=== PATIENT | male | born 1955 | race Caucasian/White ===

== ENCOUNTER 2016-07-31 15:07 | Inpatient (IN) ==
[2016-07-31] MEDS ORDERED: 0.9 % Sodium Chloride 1,000 ML IVC ONE (15:15)
--- NOTE | 2016-07-31 15:38 | Emergency Department Note ---
START Narrative - START START: I examined this patient and my medical decision-making was reviewed with the REACH TRUCK OPERATOR/PA/Advanced Practice Nurse/Resident Physician. I agree with the documented findings, disposition and treatment plan as described except to the extent set forth below. ED attending note: Patient seen with emergency medicine resident Dr. Sheriff. Please see a copy of his note for details of the H&P, evaluation, management and disposition of this patient. We independently had [id number] contact with the patient Briefly: 61 year old male from the [facility] via EMS for dark stools, has been taking 9 tablets of a nonsteroidal daily for pain. Was seen at the [place] was orthostatic upon standing symptomatic and anemic. Transferred for GI bleed. Finish up with some screening labs and admit the patient for GI bleeding. We have provided 35 minutes of critical care service this patient. Admission pending. Patient stable now
--- NOTE | 2016-07-31 15:55 | Emergency Department Note ---
Disposition Clinical Impression: Symptomatic anemia, Acute kidney injury GI bleed Qualifiers: GI bleed type/associated pathology: melena Qualified Code(s): K92.1 - Melena Disposition: Admitted As Inpatient Condition: Good GI Bleed HPI - General Chief complaint: ED GI Bleed Stated complaint: Black bowel movements Time Seen by Provider: 07/31/16 15:14 Source: patient, EMS Mode of arrival: EMS Limitations: no limitations Nursing Notes Reviewed: Yes Vital Signs Reviewed: Yes - History of Present Illness HPI Narrative: 61-year-old male history of hypertension, hyperlipidemia who presents to the ER from the [place] due to lower GI bleed. patient reorts for the last 2 weeks he had chest pain intermittently. He states because of that he was taking 8-9 etodolac a day. He states that this did help his chest pain. He reports that he went to the [place] today and because he felt so bad they sent him here. Patient reports he has had some dark stools recently. No history of anemia or GI bleed in the past. No history of endoscopy. He is not on any anticoagulation. He does take aspirin daily. He denies nausea, vomiting, abdominal pain, diarrhea. No other complaints. Pt Subjective Complaint: melena Onset (ago): day(s) Consistency: intermittent Severity: none Improves with: nothing Worsens with: nothing Associated symptoms: Denies: abdominal pain, nausea, vomiting, fever, shortness of breath Treatments Prior to Arrival: none - Related Data Home Medications Medication Instructions Recorded Confirmed Aspirin Enteric Coated [Aspirin EC] 325 mg PO DAILY 07/31/16 07/31/16 Diclofenac Sodium [Voltaren] 2 gm TP BID PRN 07/31/16 07/31/16 Etodolac [Lodine] 400 mg PO BID PRN 07/31/16 07/31/16 Hydrochlorothiazide 25 mg PO DAILY 07/31/16 07/31/16 Lidocaine 4% CRM (LMX) [Lmx 4] 1 appl TP BID PRN 07/31/16 07/31/16 Lisinopril [Zestril] 20 mg PO BID 07/31/16 07/31/16 Metoprolol [Lopressor] 25 mg PO QPM 07/31/16 07/31/16 Metoprolol [Lopressor] 50 mg PO QAM 07/31/16 07/31/16 Allergies Allergy/AdvReac Type Severity Reaction Status Date / Time simvastatin AdvReac Unknown Verified 07/31/16 17:26 All systems ED: reviewed and negative except as stated. Constitutional: Denies: fever Cardiovascular: Reports: chest pain, dyspnea on exertion Respiratory: Denies: cough, dyspnea, wheezes Gastrointestinal: Reports: melena. Denies: abdominal pain, nausea, vomiting, diarrhea Musculoskeletal: Denies: back pain Hematological/Lymphatic: Denies: easy bleeding Past Medical History - Past Medical History Attestation: Yes The following information was validated with the patient. Source: patient Medical history: Reports: hypertension Surgical history: Reports: non-contributory Psychiatric history: Reports: no psych history - Social History Smoking Status: Former smoker Smokeless Tobacco Status: No Alcohol use: Reports: occasionally Drug use: Reports: none Physical Exam - General Limitations: no limitations General appearance: alert, in no apparent distress, other (Pale) - Head Head exam: atraumatic, normocephalic, normal inspection - Eye Eye exam: Present: normal appearance, EOMI - ENT ENT exam: normal exam - Neck Neck exam: Present: normal inspection - Chest Chest inspection: Present: normal inspection, symmetric chest wall rise - Respiratory Respiratory exam: Present: normal lung sounds bilaterally - Cardiovascular Cardiovascular exam: Present: normal rhythm, tachycardia, normal heart sounds - Abdominal Exam Abdominal exam: Present: soft, Non-Tender. Absent: tenderness - Rectal Exam Rectal exam: Present: normal inspection, heme (-) stool - Expanded Upper Extremity Exam Shoulder exam: Present: normal inspection, full ROM Arm exam: Present: normal inspection, full ROM Elbow exam: Present: normal inspection, full ROM Forearm/Wrist exam: Present: normal inspection, full ROM Hand exam: Present: normal inspection, full ROM - Expanded Lower Extremity Exam Hip/Pelvis exam: Present: normal inspection, full ROM Upper leg exam: Present: normal inspection, full ROM Knee exam: Present: normal inspection, full ROM Lower leg exam: Present: normal inspection, full ROM Ankle exam: Present: normal inspection, full ROM Foot/toe exam: Present: normal inspection, full ROM - Neurological Exam Neurological exam: Present: alert - Psychiatric Psychiatric exam: Present: normal affect, normal mood - Skin Skin exam: Present: warm, dry, intact, normal color Course Course Narrative: Patient patient seen and examined. Vital signs reviewed. He is slightly tachycardic here. We will check a stool occult, type and screen and to begin transfusing. Patient will be admitted for further management.\ I reviewed the lab work from the [place] which shows a hemoglobin of 6.2 that was previously 13.4 on 02/29/2016. White count 13.7 platelets 607. Sodium 140, potassium 3.6, chloride 105, bicarbonate 26, BUN 62 from 30. Creatinine 2.34 from 1.43. GFR 30 from 53. - Reevaluation(s) Reevaluation #1: Troponin here is 0. Patient will be transfused a unit of blood. Vital Signs Temperature 98.3 F 07/31/16 15:08 Pulse Rate 108 07/31/16 15:08 Respiratory Rate 20 07/31/16 15:08 Blood Pressure 137/79 07/31/16 15:08 O2 Sat by Pulse Oximetry 100 07/31/16 15:08 Temperature 98.3 F 07/31/16 17:28 Pulse Rate 97 07/31/16 17:28 Respiratory Rate 18 07/31/16 17:28 Blood Pressure 125/73 07/31/16 17:28 O2 Sat by Pulse Oximetry 100 07/31/16 17:13 Oxygen Delivery Oxygen Delivery Nasal Cannula GI Bleed - [facility] Narrative Medical decision making narrative: 61-year-old male presents to the ER due to concern for GI bleed. His hemoglobin is 6.2. Coags are normal. Does have an elevated creatinine and BUNs. Patient given IV fluids and packed RBCs here. Patient will be admitted for further management of symptomatic anemia. - Lab Data Lab results reviewed: Yes I reviewed the patient's lab results. Lab Results 07/31/16 07/31/16 07/31/16 Range/Units 15:32 15:32 15:47 Troponin I 0.00 (0-0.03) ng/mL Stool Occult Blood Negative (Negative) Blood Type O POSITIVE Antibody Screen NEGATIVE Crossmatch See Detail - EKG Data EKG attestation: Yes I reviewed and interpreted this EKG. EKG results narrative: EKG demonstrates sinus tachycardia with a rate of 113. IA interval 160 QRS duration 101 QTc 383. T-wave flattening in lead 3. No ST elevations or depressions. S.B.A.R. - S.B.A.R. Situation: Demographics, MOA Background: Presenting Complaint, Relevant PMH, Meds, & Allergies Assessment: Vital Signs, Course and respsone to treatment, Exam Concerns, Patient/Family Expectation, Pertinant Lab Results, Outstanding Labs Recommendation: Barrier(s) to disposition, Recommendation based on pending studies, treatments, or consults S.B.A.R. Report Given to: Dr. Gio MartinezASteve Repor Time: 17:19 (Requests a second unit of PRBCs to be given)
[2016-07-31] MEDS ORDERED: 0.9 % Sodium Chloride 250 ML ONE ×2 (17:00→20:41)
[2016-07-31] MEDS ORDERED: Pantoprazole 40 MG VIAL IVP ONE (20:18)
[2016-07-31] MEDS ORDERED: Naloxone 0.4 MG/ML INJ IVP PRN (20:47)
[2016-07-31] MEDS ORDERED: *HR* HYDROcodone/Acet 5/325 mg TABLET PO PRN (20:47)
[2016-07-31] MEDS ORDERED: Acetaminophen 325 MG TABLET PO PRN (20:47)
[2016-07-31] MEDS: Pantoprazole 40 MG in 0.9 % Sodium Chloride Mini Bag 100 ML IVC SCH (22:58)
[2016-07-31] MEDS: 0.9 % Sodium Chloride 1,000 ML IVC SCH (23:09)
--- NOTE | 2016-07-31 23:12 | Internal Med History&Physical ---
Date of Encounter: 07/31/16 Time of Encounter: 23:08 Assessment and Plan (1) GI bleed Current visit: Yes Status: Acute Patient with Hgb of 6.2 and reports black stools. He has been taking 3 different NSAIDs for his joint pain. Stop NSAIDs IV protonix drip Transfuse 2 units of blood Check H/H Q 6 hours NPO for likely scope tomorrow Consult to GI ordered. Qualifiers: GI bleed type/associated pathology: melena Qualified Code(s): K92.1 - Melena (2) Symptomatic anemia Current visit: Yes Status: Acute Patient reporting shortness of breath and fatigue. Hgb 6.2 today. Transfuse 2 units of Packed RBCs check H/H every 6 hours (3) Acute kidney injury Current visit: Yes Status: Acute Patient's BUN/Cr 62/2.34, likely due to excessive NSAID use. Avoid NSAIDs IV fluids 0.9NS at 100ml/hr recheck chemistry in the mornign. (4) Hypertension Current visit: Yes Status: Acute Patient with low-normal blood pressure today due to anemia. Will hold home blood pressure medications for now. Qualifiers: Hypertension type: essential hypertension Qualified Code(s): I10 - Essential (primary) hypertension (5) Chest pain Current visit: Yes Status: Acute Patient reports dull ache in the middle of his chest for the last several weeks. He reports it is not-radiating, relieved by aspirin. Troponin negative at 0.0, EKG showed sinus tachycardia without ischemic changes. Low suspicion for ACS, but will rule out. serial troponins continuous cardiac cath tech. Qualifiers: Chest pain type: precordial pain Qualified Code(s): R07.2 - Precordial pain (6) DVT prophylaxis Current visit: Yes Status: Acute Ambulate with assistance anti-embolic stockings pharmacologic prophylaxis is contraindicated in active GI bleed. Internal Medicine - H&P: HPI Chief complaint: acute blood loss anemia Admitted From: Emergency Dept Plans for Post Hospital Care: Home History of present illness: Mr. Berrios is a 61 year old male with hypertension, hyperlipidemia, who presented to the [place] clinic today for a joint injection and was found to have low blood pressure they obtained labs and found that his hemoglobin was 6.2 and he was sent to our emergency department. Patient reports that he has been having dark stools, but did not note anything out of the ordinary. He reports a dull ache in his chest for the last several weeks. He also reports feeling tired and noted shortness of breath yesterday and today. He denies any dizziness, lightheadedness, palpitations. He denies any alfie blood in his stools, and has not noted any other bleeding. For his joint aches he has been taking aspirin, diclofenac, and Etodolac, all NSAIDs. In addition to his anemia with Hgb 6.2, he was also noted to have SERGE with BUN 62 and Cr of 2.34 which is also likely due to excessive NSAID use. Other evaluation included a troponin which was negative at 0.00, EKG which showed sinus tachycardia. On exam, patient is alert and oriented, in no distress. Heart has regular rate and rhythm, lungs are clear bilaterally to auscultation. Past Med Surg Social Fam HX - Past Medical History Medical history: hyperlipidemia, hypertension Psychiatric history: no psych history - Past Surgical History Surgical History: no surgical history - Social History Smoking Status: Former smoker Smokeless Tobacco Status: No Alcohol use: occasionally Drug use: none Internal Medicine - H&P: Meds Aspirin Enteric Coated [Aspirin EC] 325 mg PO DAILY 07/31/16 [History] Diclofenac Sodium [Voltaren] 2 gm TP BID PRN 07/31/16 [History] Etodolac [Lodine] 400 mg PO BID PRN 07/31/16 [History] Hydrochlorothiazide 25 mg PO DAILY 07/31/16 [History] Lidocaine 4% CRM (LMX) [Lmx 4] 1 appl TP BID PRN 07/31/16 [History] Lisinopril [Zestril] 20 mg PO BID 07/31/16 [History] Metoprolol [Lopressor] 25 mg PO QPM 07/31/16 [History] Metoprolol [Lopressor] 50 mg PO QAM 07/31/16 [History] Allergies simvastatin Adverse Reaction (Verified 07/31/16 17:26) Unknown per [facility] PM: A 10-system review of systems was performed and is negative for pertinent findings except as documented above in the HPI. - Constitutional Constitutional: fatigue, no chills, no fever(s), no night sweats - EENT Eyes: no change in vision, no discharge, no pain, no photophobia Ears: no ear discharge, no ear pain, no tinnitus Nose, mouth and throat: no dysphagia, no nasal discharge, no neck pain, no sore throat - Cardiovascular Cardiovascular ROS IM: chest pain, dyspnea on exertion, no diaphoresis, no dyspnea, no lightheadedness, no palpitations, no syncope - Respiratory Respiratory: dyspnea on exertion, no cough, no dyspnea, no wheezing, no excessive phlegm production - Gastrointestinal Gastrointestinal: melena, no abdominal pain, no diarrhea, no hematemesis, no hematochezia, no nausea, no vomiting - Musculoskeletal Musculoskeletal ROS IM: no numbness, no tingling - Integumentary Integumentary IM: no rash, no unusual bruising - Neurological Neurological ROS: no confusion, no convulsions, no focal weakness, no numbness, no tingling, no tremor(s) - Hematologic/Lymphatic Hematologic/Lymphatic: no easy bruising - Constitutional Vitals: Temp Pulse Resp BP Pulse Ox 99.3 F 106 16 157/81 100 07/31/16 21:58 07/31/16 21:58 07/31/16 21:58 07/31/16 21:58 07/31/16 21:58 General appearance: Present: A&O X 3, no acute distress - Head Head exam: Present: atraumatic, normocephalic - Eye Eye exam: Present: PERRL, conjuntiva pink, sclera anicteric Pupils: Present: PERRL - Neck Neck exam general surgery: Present: supple, trachea midline. Absent: lymphadenopathy - Respiratory Respiratory exam: Present: CTAB. Absent: accessory muscle use, rales, rhonchi, wheezes - Cardiovascular Cardiovascular exam: Present: RRR, +S1, +S2. Absent: diastolic murmur, gallop, rubs, systolic murmur - GI/Abdominal GI/Abdominal exam: Present: normal bowel sounds, soft, no peritoneal signs. Absent: distended, tenderness - Extremities Exam Extremities exam: Present: warm, radial pulses palpable and symetrical. Absent : calf tenderness, cyanotic, pedal edema - Neurological Exam Neurological exam: Present: CN II-XII intact, oriented X3, no focal deficits. Absent: facial droop, speech deficit - Skin Skin exam: Present: dry, intact Internal Med - H&P Results - Labs Labs: Labs from [place]: Hgb 6.2 WBC 13.7 Plt 607 Na 140 K 3.6 Cl 105 CO2 26 BUN 62 Cr 2.34 Trop 0.00
[2016-08-01 01:24] LABS: Basophils % 0.2 %; Eosinophils # 0.4 K/mcL (0.0-0.6); Eosinophils % 3.1 %; Hematocrit 23.3 % (37.5-50.1); Hemoglobin 7.5 g/dL (12.9-16.9); Immature Granulocytes % 0.8 % (0-4); Lymphocytes # 2.2 K/mcL (0.6-4.6); Lymphocytes % 18.2 %; Mean Corpuscular HGB Conc 32.2 g/dL (31.6-35.5); Mean Corpuscular Volume 86.9 fL (83.0-100.0); Mean Platelet Volume 9.1 fL (9.4-12.4); Monocytes % 7.9 %; Neutrophils # 8.4 K/mcL (1.6-8.9); Platelet Count 437 K/mcL (140-400); Red Blood Count 2.68 M/mcL (4.19-5.50); Red Cell Distribution Width 14.8 % (11.5-14.5); Segmented Neutrophils % 69.8 %
[2016-08-01 01:46] LABS: Calcium 8.3 mg/dL (8.6-10.8); Potassium 3.4 mEq/L (3.5-4.5)
[2016-08-01] MEDS: Pantoprazole 40 MG in 0.9 % Sodium Chloride Mini Bag 100 ML IVC SCH ×4 (02:31→20:49)
--- NOTE | 2016-08-01 04:07 | Event Note ---
Date of Encounter: 08/01/16 Time of Encounter: 04:04 Patient seen and examined with nurse practitioner patient presents with a two- week history of weakness decreased exercise tolerance and black stools. Patient has been taking nonsteroidal anti-inflammatory drugs on daily paces for the past 2 week. Suspect nonsteroidal anti-inflammatory drug induced ulcer disease. Patient will be placed on Platonic strip. 2 units of blood will be transfused. Follow H&H Q6 hours. I have advised the patient to avoid nonsteroidal anti-inflammatory drugs completely. Patient is also having acute or chronic renal failure due to increase use of nonsteroidal anti-inflammatory drugs and he was also advised to avoid that to avoid renal injury. Patient is NPO gastroenterology consultation for upper endoscopy. He is having chest pain which does not appear anginal. Serial troponin will be checked. EKG without any ischemic changes.
[2016-08-01] MEDS ORDERED: *HR* FentaNYL (PF) 100 MCG/2 ML VIAL ONE (07:21)
[2016-08-01] MEDS ORDERED: *HR* Midazolam HCl 5 MG/5 ML VIAL IVP ONE (07:21)
[2016-08-01] MEDS ORDERED: 0.9 % Sodium Chloride 1,000 ML IVC SCH (07:45)
[2016-08-01] MEDS: *HR* Midazolam HCl 5 MG/5 ML VIAL IVP PRN ×3 (07:45→07:55)
[2016-08-01] MEDS: *HR* FentaNYL (PF) 100 MCG/2 ML VIAL IVP PRN ×3 (07:45→07:55)
[2016-08-01] MEDS ORDERED: *HR* EPINEPHrine 1 MG/10 ML SYRINGE INTRATRACH PRN (08:03)
--- NOTE | 2016-08-01 08:19 | Internal Med Progress Note ---
<Tim Quintero - Last Filed: 08/01/16 12:21> Date of Encounter: 08/01/16 Time of Encounter: 08:19 - Assessment and plan (1) GI bleed Current Visit: Yes Status: Acute Assessment and plan: 08/01/16 Patient had endoscopy this morning which reportedly showed a large bleeding ulcer Continue plan as below Appreciate GI recommendations, will follow 07/31/16 Patient with Hgb of 6.2 and reports black stools. He has been taking 3 different NSAIDs for his joint pain. Stop NSAIDs IV protonix drip Transfuse 2 units of blood Check H/H Q 6 hours NPO for likely scope tomorrow Consult to GI ordered. (2) Anemia due to acute blood loss Current Visit: Yes Status: Acute Assessment and plan: 08/01/16 Hemoglobin increased to 9.3 this morning Continue to monitor H&H and transfuse as necessary 07/31/16 Patient reporting shortness of breath and fatigue. Hgb 6.2 today. Transfuse 2 units of Packed RBCs check H/H every 6 hours (3) Acute kidney injury Current Visit: Yes Status: Acute Assessment and plan: 08/01/16 serum creatinine trending down 07/31/16 Patient's BUN/Cr 62/2.34, likely due to excessive NSAID use. Avoid NSAIDs IV fluids 0.9NS at 100ml/hr recheck chemistry in the mornign. (4) Hypertension Current Visit: Yes Status: Acute Assessment and plan: 08/01/16 Blood pressure trending back upward but most recently 120s / 70s Significant increase in hemoglobin Continue to monitor and resume home medications as necessary 07/31/16 Patient with low-normal blood pressure today due to anemia. Will hold home blood pressure medications for now. (5) Chest pain Current Visit: Yes Status: Acute (6) DVT prophylaxis Current Visit: Yes Status: Acute - Subjective Interval history: Patient away for EGD this morning. He was seen and examined post procedure in ICU. Patient was intubated / sedated. - Constitutional Vitals: Temp Pulse Resp BP Pulse Ox 98.8 F 99 16 109/71 99 08/01/16 07:28 08/01/16 08:05 08/01/16 08:05 08/01/16 08:05 08/01/16 08:05 General appearance: Present: no acute distress - Head Head exam: Present: atraumatic, normocephalic - Neck Neck exam general surgery: Present: supple, trachea midline. Absent: lymphadenopathy - Respiratory Respiratory exam: Present: decreased breath sounds, CTAB. Absent: accessory muscle use, rales, rhonchi, wheezes - Cardiovascular Cardiovascular exam: Present: RRR, +S1, +S2. Absent: diastolic murmur, gallop, rubs, systolic murmur - GI/Abdominal GI/Abdominal exam: Present: normal bowel sounds, soft, no peritoneal signs. Absent: distended - Extremities Exam Extremities exam: Present: warm, radial pulses palpable and symetrical. Absent : pedal edema - Neurological Exam Neurological exam: Absent: facial droop - Skin Skin exam: Present: dry, intact Internal Medicine: Result - Labs CBC & Chem 7: 08/01/16 10:16 08/01/16 10:16 Labs: Short CBC 08/01/16 Range/Units 01:11 WBC 12.1 H (4.3-11.1) K/mcL Hgb 7.5 L (12.9-16.9) g/dL Hct 23.3 L (37.5-50.1) % Plt Count 437 H (140-400) K/mcL Neutrophils # 8.4 (1.6-8.9) K/mcL BMP 08/01/16 01:11 Sodium 140 Potassium 3.4 L Chloride 108 Carbon Dioxide 22 BUN 51 H Creatinine 1.75 H Glucose 115 H Calcium 8.3 L Cardiac Enzymes 08/01/16 08/01/16 Range/Units 01:11 06:35 Troponin I 0.01 0.01 (0-0.03) ng/mL Consult Discharge Plan - Plan [facility] Provider[facility] - <Tony Goncalves P - Last Filed: 08/01/16 18:32> - Constitutional Vitals: Temp Pulse Resp BP Pulse Ox 98.6 F 85 16 111/70 100 08/01/16 17:02 08/01/16 18:00 08/01/16 18:00 08/01/16 18:00 08/01/16 18:00 Internal Medicine: Result - Labs CBC & Chem 7: 08/01/16 10:16 08/01/16 10:16 Labs: Short CBC 08/01/16 08/01/16 Range/Units 01:11 10:16 WBC 12.1 H 17.3 H (4.3-11.1) K/mcL Hgb 7.5 L 9.3 L D (12.9-16.9) g/dL Hct 23.3 L 28.7 L (37.5-50.1) % Plt Count 437 H 379 (140-400) K/mcL Neutrophils # 8.4 14.6 H (1.6-8.9) K/mcL BMP 08/01/16 08/01/16 01:11 10:16 Sodium 140 140 Potassium 3.4 L 4.0 Chloride 108 111 H Carbon Dioxide 22 20 BUN 51 H 42 H Creatinine 1.75 H 1.72 H Glucose 115 H 173 H Calcium 8.3 L 7.6 L Cardiac Enzymes 08/01/16 08/01/16 Range/Units 01:11 06:35 Troponin I 0.01 0.01 (0-0.03) ng/mL Liver Function 08/01/16 Range/Units 10:16 Total Bilirubin 0.7 (0.2-1.2) mg/dL AST 15 (5-34) Units/L ALT 13 (0-55) Units/L Alkaline Phosphatase 44 (38-126) Units/L Albumin 2.2 L (3.5-5.0) g/dL Urine 08/01/16 Range/Units 16:45 Urine Color Yellow (Yellow) Urine Clarity Clear (Clear) Urine pH 6.0 (5.0-8.0) pH Units Ur Specific [place] 1.021 (1.010-1.025) Urine Protein Negative (Neg-Trace) mg/dL Urine Glucose (UA) Normal (Normal) mg/dL - ABG Interpretation ABG results: ABG ABG pH 7.28 pH Units (7.32-7.45) L 08/01/16 11:40 ABG pCO2 45 mmHg (35-45) 08/01/16 11:40 ABG pO2 98 mmHg (85-104) 08/01/16 11:40 ABG O2 Saturation 97 % (95-98) 08/01/16 11:40 PT/INR, D-dimer PT 13.1 Seconds (9.4-12.1) H 08/01/16 10:16 - Impressions Impressions Chest X-Ray 08/01/16 09:44 IMPRESSION: 1. Endotracheal tube tip approximately 3 cm above the ted. 2. Patchy opacities in the left lung, which may represent pneumonia in the appropriate clinical setting. 3. Widening of the mediastinum superiorly, which is nonspecific and could be related to shallow breath and portable technique. Further evaluation with CT may be warranted. D/ / Cielo Godoy MD / Cielo Godoy MD Interpreting Provider: Cielo Godoy MD - Attending Attestation I examined this patient and my medical decision-making was reviewed with the STONE DRESSER/PA/Advanced Practice Nurse/Resident Physician. I agree with the documented findings, disposition and treatment plan as described except to the extent set forth below. noted events pulmonary to take over management
[2016-08-01] MEDS ORDERED: hydroCHLOROthiazide 25 MG TABLET PO SCH (09:00)
[2016-08-01] MEDS ORDERED: *HR* Succinylcholine 200 MG/10 ML VIAL IVP ONE (09:07)
[2016-08-01] MEDS ORDERED: EPHEDrine 50 MG/ML VIAL IVP ONE (09:07)
[2016-08-01] MEDS ORDERED: *HR* Propofol 200 MG/20 ML VIAL IVP ONE (09:07)
[2016-08-01] MEDS ORDERED: *HR* Rocuronium Bromide 50 MG/5 ML VIAL IVC ONE (09:07)
[2016-08-01] MEDS: 0.9 % Sodium Chloride 1,000 ML IVC SCH ×2 (09:31→23:09)
[2016-08-01 10:38] LABS: Basophils # 0.1 K/mcL (0.0-0.2); Basophils % 0.3 %; Eosinophils # 0.3 K/mcL (0.0-0.6); Eosinophils % 1.4 %; Hematocrit 28.7 % (37.5-50.1); Hemoglobin 9.3 g/dL (12.9-16.9); Lymphocytes # 1.3 K/mcL (0.6-4.6); Lymphocytes % 7.5 %; Mean Corpuscular HGB Conc 32.4 g/dL (31.6-35.5); Mean Corpuscular Hemoglobin 28.4 pg (28.0-33.3); Mean Corpuscular Volume 87.8 fL (83.0-100.0); Mean Platelet Volume 9.1 fL (9.4-12.4); Monocytes # 0.7 K/mcL (0.0-1.3); Monocytes % 4.1 %; Neutrophils # 14.6 K/mcL (1.6-8.9); Platelet Count 379 K/mcL (140-400); Red Blood Count 3.27 M/mcL (4.19-5.50); Segmented Neutrophils % 84.7 %
--- NOTE | 2016-08-01 10:46 | Gastroenterology Consult Note ---
<Herson Camarena - Last Filed: 08/01/16 10:44> Date of Encounter: 08/01/16 Time of Encounter: 09:40 - Assessment and plan (1) GI bleed Current Visit: Yes Status: Acute Assessment and plan: Pt with melena on presentation. EGD completed this morning per Dr. Leos. Large ulcer noted which started bleeding. Concern for aspiration, pt was intubated for airway protection, and transferred to ICU. Continue Protonix gtt. Stop NSAIDs. Qualifiers: GI bleed type/associated pathology: melena Qualified Code(s): K92.1 - Melena (2) Symptomatic anemia Current Visit: Yes Status: Acute Assessment and plan: Continue to monitor CBC and transfuse PRBC as needed. (3) Acute kidney injury Current Visit: Yes Status: Acute - Time Spent With Patient Total time spent is greater than 50% in coordination of care (as documented) at patient's floor/unit and/or counseling patient: GI History of Present Illness - Data of Consult Patient: new to practice Consult date: 08/01/16 Requesting Physician: Tony Goncalves MD - Consult Narrative Reason for consult: Melena History of present illness: Mr. Berrios is a 61 year old male with PMHx of HLD and HTN who presented to the [place] and was found to be anemic with Hgb of 6.2. He was transferred here for further evaluation. He reports melena, fatigue, and SOB. He denies hematochezia or hematemesis. No dizziness, lightheadedness, or palpitations. He uses ASA, diclofenac, and etodolac for joint aches. Pt was sedated with Propofol during my exam, information obtained from medical record. Procedures: None NSAIDs: ASA, diclofenac, and etodolac Anticoagulation: None Past Med Surg Social Fam HX - Past Medical History Medical history: hyperlipidemia, hypertension Psychiatric history: no psych history - Past Surgical History Surgical History: no surgical history - Social History Smoking Status: Former smoker Smokeless Tobacco Status: No Alcohol use: occasionally Drug use: none ROS unobtainable: due to endotracheal tube - Constitutional Vitals: Temp Pulse Resp BP Pulse Ox 98.8 F 112 16 153/83 96 08/01/16 07:28 08/01/16 10:08 08/01/16 10:08 08/01/16 10:08 08/01/16 10:08 Exam: Intubated and sedated - Head Head exam: Present: atraumatic, normocephalic - Eye Eye exam: Present: normal appearance, sclera anicteric - ENT ENT exam: Present: mucous membranes dry Additional comments: ET tube in place, blood noted in ET tube. - Neck Neck exam general surgery: Present: normal inspection, trachea midline - Respiratory Additional comments: mechanical breath sounds. - Cardiovascular Cardiovascular exam: Present: RRR, +S1, +S2 - GI/Abdominal GI/Abdominal exam: Present: distended, soft, no peritoneal signs. Absent: firm , guarding - Rectal Rectal exam: Present: deferred - Extremities Exam Extremities exam: Present: warm - Neurological Exam Additional comments: Sedated - Psychiatric Psychiatric exam: Present: normal affect, normal mood - Skin Skin exam: Present: dry, intact, normal color, warm Results - Labs CBC & Chem 7: 08/01/16 10:16 08/01/16 01:11 Labs: Last Result Calcium 8.3 mg/dL (8.6-10.8) L 08/01/16 01:11 Troponin I 0.01 ng/mL (0-0.03) 08/01/16 06:35 Stool Occult Blood Negative (Negative) 07/31/16 15:47 Entire Visit Hgb 9.3 g/dL (12.9-16.9) L D 08/01/16 10:16 Hct 28.7 % (37.5-50.1) L 08/01/16 10:16 - Impressions Impressions Chest X-Ray 08/01/16 09:44 IMPRESSION: 1. Endotracheal tube tip approximately 3 cm above the ted. 2. Patchy opacities in the left lung, which may represent pneumonia in the appropriate clinical setting. 3. Widening of the mediastinum superiorly, which is nonspecific and could be related to shallow breath and portable technique. Further evaluation with CT may be warranted. D/ / Cielo Godoy MD / Cielo Godoy MD Interpreting Provider: Cielo Godoy MD Consult Discharge Plan - Plan Referrals: [facility] [Primary Care Provider[facility] - <Mariana Leos - Last Filed: 08/01/16 12:29> Time of Encounter: 08:00 - Time Spent With Patient Total time spent is greater than 50% in coordination of care (as documented) at patient's floor/unit and/or counseling patient: GI History of Present Illness - Data of Consult Requesting Physician: Tony Goncalves MD - Consult Narrative History of present illness: Mr. Berrios is a 61 year old male - Constitutional Vitals: Temp Pulse Resp BP Pulse Ox 98.8 F 105 14 124/73 98 08/01/16 07:28 08/01/16 11:00 08/01/16 11:00 08/01/16 11:00 08/01/16 11:00 Results - Labs CBC & Chem 7: 08/01/16 10:16 08/01/16 10:16 Labs: Last Result Calcium 7.6 mg/dL (8.6-10.8) L 08/01/16 10:16 Troponin I 0.01 ng/mL (0-0.03) 08/01/16 06:35 Stool Occult Blood Negative (Negative) 07/31/16 15:47 Entire Visit Hgb 9.3 g/dL (12.9-16.9) L D 08/01/16 10:16 Hct 28.7 % (37.5-50.1) L 08/01/16 10:16 PT 13.1 Seconds (9.4-12.1) H 08/01/16 10:16 Total Bilirubin 0.7 mg/dL (0.2-1.2) 08/01/16 10:16 AST 15 Units/L (5-34) 08/01/16 10:16 ALT 13 Units/L (0-55) 08/01/16 10:16 - ABG ABG results: ABG ABG pH 7.28 pH Units (7.32-7.45) L 08/01/16 11:40 ABG pCO2 45 mmHg (35-45) 08/01/16 11:40 ABG pO2 98 mmHg (85-104) 08/01/16 11:40 ABG O2 Saturation 97 % (95-98) 08/01/16 11:40 PT/INR, D-dimer PT 13.1 Seconds (9.4-12.1) H 08/01/16 10:16 - Impressions Impressions Chest X-Ray 08/01/16 09:44 IMPRESSION: 1. Endotracheal tube tip approximately 3 cm above the ted. 2. Patchy opacities in the left lung, which may represent pneumonia in the appropriate clinical setting. 3. Widening of the mediastinum superiorly, which is nonspecific and could be related to shallow breath and portable technique. Further evaluation with CT may be warranted. D/ / Cielo Godoy MD / Cielo Godoy MD Interpreting Provider: Cielo Godoy MD - Attending Attestation I examined this patient and my medical decision-making was reviewed with the [employer]/PA/Advanced Practice Nurse/Resident Physician. I agree with the documented findings, disposition and treatment plan as described except to the extent set forth below.
[2016-08-01 10:50] LABS: Albumin 2.2 g/dL (3.5-5.0); Albumin/Globulin Ratio 0.6 (1.1-2.2); Bilirubin,Total 0.7 mg/dL (0.2-1.2); Calcium 7.6 mg/dL (8.6-10.8); Globulin 3.9 g/dL (2.4-3.5); Magnesium 1.6 mg/dL (1.6-2.6); Total Protein 6.1 g/dL (6.0-8.3)
[2016-08-01] MEDS ORDERED: *HR* EPINEPHrine 1 MG/10 ML SYRINGE ONE (11:08)
[2016-08-01] MEDS: FentaNYL (PF) 1,000 MCG in 0.9 % Sodium Chloride 80 ML IVC SCH (11:12)
--- NOTE | 2016-08-01 11:17 | Pulmonology Consult Note ---
<Macario Iglesias W - Last Filed: 08/01/16 12:07> Medications and Allergies Aspirin Enteric Coated [Aspirin EC] 325 mg PO DAILY 07/31/16 [History] Diclofenac Sodium [Voltaren] 2 gm TP BID PRN 07/31/16 [History] Etodolac [Lodine] 400 mg PO BID PRN 07/31/16 [History] Hydrochlorothiazide 25 mg PO DAILY 07/31/16 [History] Lidocaine 4% CRM (LMX) [Lmx 4] 1 appl TP BID PRN 07/31/16 [History] Lisinopril [Zestril] 20 mg PO BID 07/31/16 [History] Metoprolol [Lopressor] 25 mg PO QPM 07/31/16 [History] Metoprolol [Lopressor] 50 mg PO QAM 07/31/16 [History] Allergies simvastatin Adverse Reaction (Verified 07/31/16 17:26) Unknown per [facility] Systems: A 10-system review of systems was performed and is negative for pertinent findings except as documented above in the HPI. Physical Examination Vital Signs: Vital Signs, Last 4 Hours Temp Pulse Resp BP Pulse Ox 08/01/16 11:00 105 14 124/73 98 08/01/16 10:08 112 16 153/83 96 08/01/16 09:17 122 08/01/16 09:10 134 13 184/92 100 08/01/16 08:05 99 16 109/71 99 08/01/16 08:00 88 16 157/71 99 08/01/16 07:55 91 16 150/82 99 08/01/16 07:50 90 16 149/71 99 08/01/16 07:45 103 18 152/82 94 L 08/01/16 07:28 98.5 F 82 18 131/77 96 Ventilator Settings Ventilator Settings: Ventilator Settings, Last 8 Hours Ventilator Mode VC+ Ventilator Mode VC+ Ventilator Mode VC+ Ventilator Tidal Volume 550 Setting Ventilator Tidal Volume 450 Setting Ventilator Tidal Volume 550 Setting Ventilator Respiratory Rate 12 Setting Ventilator Respiratory Rate 12 Setting Ventilator Respiratory Rate 12 Setting Actual Respiratory Rate 14 Actual Respiratory Rate 13 Actual Respiratory Rate 14 Positive End Expiratory 5 Pressure Positive End Expiratory 5 Pressure Positive End Expiratory 5 Pressure Peak Inspiratory Airway 18 Pressure Peak Inspiratory Airway 19 Pressure Peak Inspiratory Airway 32 Pressure Peak Inspiratory Airway 28 Pressure Peak Inspiratory Airway 28 Pressure Results - Laboratory Findings CBC and BMP: 08/01/16 10:16 08/01/16 10:16 Abnormal lab findings: Abnormal lab results WBC 17.3 K/mcL (4.3-11.1) H 08/01/16 10:16 RBC 3.27 M/mcL (4.19-5.50) L 08/01/16 10:16 Hgb 9.3 g/dL (12.9-16.9) L D 08/01/16 10:16 Hct 28.7 % (37.5-50.1) L 08/01/16 10:16 RDW 15.0 % (11.5-14.5) H 08/01/16 10:16 MPV 9.1 fL (9.4-12.4) L 08/01/16 10:16 Neutrophils # 14.6 K/mcL (1.6-8.9) H 08/01/16 10:16 Chloride 111 mEq/L (98-109) H 08/01/16 10:16 BUN 42 mg/dL (8-26) H 08/01/16 10:16 Creatinine 1.72 mg/dL (0.72-1.25) H 08/01/16 10:16 Est GFR ( Amer) 49 (> 60) L 08/01/16 10:16 Est GFR (Non-Af Amer) 40 (> 60) L 08/01/16 10:16 Glucose 173 mg/dL (70-99) H 08/01/16 10:16 POC Glucose 184 (58-89) H 08/01/16 09:14 Calculated Osmolality 305 (280-300) H 08/01/16 10:16 Calcium 7.6 mg/dL (8.6-10.8) L 08/01/16 10:16 Albumin 2.2 g/dL (3.5-5.0) L 08/01/16 10:16 Globulin 3.9 g/dL (2.4-3.5) H 08/01/16 10:16 Albumin/Globulin Ratio 0.6 (1.1-2.2) L 08/01/16 10:16 - Clinical Findings Intake & Output: Intake & Output 07/31/16 08/01/16 08/01/16 23:59 07:59 15:59 Intake Total 250 / 1250 570 / 570 1628 / 1628 Output Total 550 / 550 Balance 250 / 1250 20 / 20 1628 / 1628 Weight 108.046 kg 109.4 kg Consult Discharge Plan - Plan [facility]errals: [facility] [Primary Care Provider] - - Attending Attestation I examined this patient and my medical decision-making was reviewed with the HOUSE OFFICER/PA/Advanced Practice Nurse/Resident Physician. I agree with the documented findings, disposition and treatment plan as described except to the extent set forth below. Patient seen and examined at bedside Labs, radiology, chart personally reviewed. All lines examined without evidence of infection. Neuropsych: Intubated and sedated goal CORRIE 2 cont fentanyl and propofol Pulm: Acute hypoxic respiratory failure during EGD concern for aspiration acceptable oxygenation and ventilation on current ventilatory support which is minimal FiO2 settings of 40%. Chest x-ray with possible left-sided opacity concerning for aspiration Cards: ECG without STEMI troponin within normal limits continue to monitor on telemetry underlying hypertension now currently normotensive FEN-GI: Acute upper GI hemorrhage secondary to likely NSAID induced PUD status post endoscopy continue to monitor CBC every 6 hours continue proton pump inhibitor infusion. GI is following patient continue to Keep NPO Renal: AK I likely secondary to NSAID appropriately urine output continue to monitor ID: Duration pneumonia cultures pending started on Pip/Tazo lactate pending Heme/Onc: Mechanical SCDs for DVT prophylaxis Endo: Glucose monitored Integ/MSK: Skin care per ICU protocol CODE: Full code <Regan Moore - Last Filed: 08/01/16 14:59> Date of Encounter: 08/01/16 Time of Encounter: 11:17 Assessment and Plan (1) Aspiration into airway Current Visit: Yes Status: Acute Patient had aspirated blood and gastric contents prior to procedure. Chest x- ray demonstrates patchy opacification the left lung which is suspicious for pneumonia. Patient remains intubated and sedated with airway protection. Plan: - Antibiotic coverage includes Zosyn every 8 hours - Patient intubated and sedated, CPAP trial either this evening or tomorrow morning if tolerated patient to be extubated. Qualifiers: Qualified Code(s): T17.908A - Unspecified foreign body in respiratory tract, part unspecified causing other injury, initial encounter (2) Leukocytosis (leucocytosis) Current Visit: Yes Status: Acute Qualifiers: Qualified Code(s): D72.829 - Elevated white blood cell count, unspecified (3) GI bleed Current Visit: Yes Status: Acute Patient presented with a hemoglobin of 6.2 with a history of black tarry stools for last several weeks associated with chest pain and lethargy. He had been taking 3 different NSAIDs regularly for weeks for knee pain. Patient underwent endoscopy that demonstrated salmon-colored mucosa, nonbleeding gastric ulcers with no stigmata or bleeding. One losing duodenal ulcer with adherent clot. Injected. Treated not successful. Treated with bipolar gold cautery and clips were placed. - Current hemoglobin 9.3 after 2 units PRBCs. Plan: - Patient is stable postprocedure currently intubated with airway protection. - Monitor hemoglobin for stability with a.m. labs. - Continue Protonix 40 mg IV - Replace with PRBCs as needed. Qualifiers: GI bleed type/associated pathology: melena Qualified Code(s): K92.1 - Melena (4) Acute kidney injury Current Visit: Yes Status: Acute Acute kidney injury secondary to volume loss. No previous creatinines on prior visits. Creatinine was 1.75 now 1.72 after PRBC replacement and procedure. Plan: -Renally dose antibiotics and avoid nephrotoxic medications - Avoid NSAIDs. - Continue fluid rehydration - Recheck renal function with a.m. labs. (5) Anemia due to acute blood loss Current Visit: Yes Status: Acute Anemia secondary to acute blood loss from duodenal ulceration. Postprocedure with clippings. Continue to monitor after patient received 2 units. He sees. (6) Hypertension Current Visit: Yes Status: Acute Patient is a history of hypertension with home medications including lisinopril 20 mg by mouth twice a day, HCTZ 25 mg by mouth daily, metoprolol 50 mg by mouth a.m. patient present with hypotension secondary to volume loss. Continue to hold antihypertensives until blood pressures are stable. Qualifiers: Hypertension type: essential hypertension Qualified Code(s): I10 - Essential (primary) hypertension (7) DVT prophylaxis Current Visit: Yes Status: Acute SCDs. History of Present Illness Consult date: 08/01/16 Requesting physician: Mariana Leos Reason for consult: other (airway protection, ) Chief complaint: GI bleed History of present illness: Mr. Berrios is a 61 year old male with hypertension, hyperlipidemia, who presented to the [place] clinic today for a joint injection and was found to have low blood pressure they obtained labs and found that his hemoglobin was 6.2 and he was sent to our emergency department. Patient is currently intubated but review of documentation demonstrates that he had been having dark stools but did not think anything out of the ordinary. He had been taking frequent NSAIDs for the pain regularly. Gastroenterology was consulted and he was transfused 2 units PRBCs overnight and underwent endoscopy, which resulted in multiple gastric and duodenal ulcers with 1 with significant oozing requiring clamping. The patient may have aspirated blood during intubation for his procedure. Postprocedure he was transferred to the ICU for continued monitoring and airway protection. Daughter is at bedside and all questions were answered. Past Med Surg Social Fam HX - Past Medical History Medical history: hyperlipidemia, hypertension Psychiatric history: no psych history - Past Surgical History Surgical History: no surgical history - Social History Smoking Status: Former smoker Smokeless Tobacco Status: No Alcohol use: occasionally Drug use: none ROS unobtainable: due to endotracheal tube, due to mental status All Systems: A 10-system review of systems was performed and is negative for pertinent findings except as documented above in the HPI. Physical Examination Vital Signs: Vital Signs, Last 4 Hours Temp Pulse Resp BP Pulse Ox 08/01/16 10:08 112 16 153/83 96 08/01/16 09:17 122 08/01/16 09:10 134 13 184/92 100 08/01/16 08:05 99 16 109/71 99 08/01/16 08:00 88 16 157/71 99 08/01/16 07:55 91 16 150/82 99 08/01/16 07:50 90 16 149/71 99 08/01/16 07:45 103 18 152/82 94 L 08/01/16 07:28 98.5 F 82 18 131/77 96 Gen. well-developed well-nourished no acute distress sedated and intubated. HEENT: Normocephalic, atraumatic, mucous membranes are dry, pale lips, trachea midline no crepitus on palpation Cardiac: Regular rate and rhythm, positive S1-S2 no murmurs or gallops appreciated Respiratory: Mild rhonchi appreciated left lower lung base all the lung chung are clear to auscultation. Chest symmetric correlate with mechanical ventilation. Abdomen: Soft, nontender to palpation, positive bowel sounds Extremities: Symmetric bilateral no signs of trauma Ventilator Settings Ventilator Settings: Ventilator Settings, Last 8 Hours Ventilator Mode VC+ Ventilator Mode VC+ Ventilator Mode VC+ Ventilator Tidal Volume 550 Setting Ventilator Tidal Volume 450 Setting Ventilator Tidal Volume 550 Setting Ventilator Respiratory Rate 12 Setting Ventilator Respiratory Rate 12 Setting Ventilator Respiratory Rate 12 Setting Actual Respiratory Rate 14 Actual Respiratory Rate 13 Actual Respiratory Rate 14 Positive End Expiratory 5 Pressure Positive End Expiratory 5 Pressure Positive End Expiratory 5 Pressure Peak Inspiratory Airway 19 Pressure Peak Inspiratory Airway 32 Pressure Peak Inspiratory Airway 28 Pressure Peak Inspiratory Airway 28 Pressure Results - Laboratory Findings CBC and BMP: 08/01/16 10:16 08/01/16 10:16 Abnormal lab findings: Abnormal lab results WBC 17.3 K/mcL (4.3-11.1) H 08/01/16 10:16 RBC 3.27 M/mcL (4.19-5.50) L 08/01/16 10:16 Hgb 9.3 g/dL (12.9-16.9) L D 08/01/16 10:16 Hct 28.7 % (37.5-50.1) L 08/01/16 10:16 RDW 15.0 % (11.5-14.5) H 08/01/16 10:16 MPV 9.1 fL (9.4-12.4) L 08/01/16 10:16 Neutrophils # 14.6 K/mcL (1.6-8.9) H 08/01/16 10:16 Chloride 111 mEq/L (98-109) H 08/01/16 10:16 BUN 42 mg/dL (8-26) H 08/01/16 10:16 Creatinine 1.72 mg/dL (0.72-1.25) H 08/01/16 10:16 Est GFR ( Amer) 49 (> 60) L 08/01/16 10:16 Est GFR (Non-Af Amer) 40 (> 60) L 08/01/16 10:16 Glucose 173 mg/dL (70-99) H 08/01/16 10:16 POC Glucose 184 (58-89) H 08/01/16 09:14 Calculated Osmolality 305 (280-300) H 08/01/16 10:16 Calcium 7.6 mg/dL (8.6-10.8) L 08/01/16 10:16 Albumin 2.2 g/dL (3.5-5.0) L 08/01/16 10:16 Globulin 3.9 g/dL (2.4-3.5) H 08/01/16 10:16 Albumin/Globulin Ratio 0.6 (1.1-2.2) L 08/01/16 10:16 - Clinical Findings Intake & Output: Intake & Output 07/31/16 08/01/16 08/01/16 23:59 07:59 15:59 Intake Total 250 / 1250 570 / 570 1615 / 1615 Output Total 550 / 550 Balance 250 / 1250 1615 / 1615 Weight 108.046 kg 109.4 kg
[2016-08-01 11:26] LABS: INR 1.2; Prothrombin Time 13.1 Seconds (9.4-12.1)
[2016-08-01 11:51] LABS: ABG Base Excess -5.4 mEq/L (-2.0 to 3.0); ABG HCO3 21.1 mEQ/L (21-27); ABG Oxygen Saturation 97 % (95-98); ABG PCO2 45 mmHg (35-45); ABG PH 7.28 pH Units (7.32-7.45); ABG PO2 98 mmHg (85-104); ABG TCO2 22.5 mEq/L (20-26)
[2016-08-01 11:59] LABS: Blood Gas FiO2 50 %; Blood Gas PEEP 5 cm H2O; Blood Gas Respiration Rate 12; Blood Gas VT 450 cc
[2016-08-01] MEDS: Piperacillin/Tazobactam 3.375 GM in D5% in Water (Mini-Bag+) 100 ML IVPB SCH ×2 (15:51→23:08)
[2016-08-01 17:09] LABS: Bilirubin,Urine Large (Negative); Blood,Urine Negative (Negative); Clarity,Urine Clear (Clear); Color,Urine Yellow (Yellow); Glucose,Urine (UA) Normal (Normal); Ketones,Urine Negative (Negative); Leukocyte Esterase,Urine Negative (Negative); Nitrite,Urine Negative (Negative); Protein,Urine Negative (Neg-Trace); Specific Gravity,Urine 1.021 (1.010-1.025); Urobilinogen,Urine Normal (Normal)
--- NOTE | 2016-08-01 17:52 | Electrocardiograph Report ---
[place] [id number] Test Date: 2016-07-31 Pat Name: Dylan Berrios Department: 103 Room: [facility] Gender: M Flight Teacher: : 1955 Requested By: Jonathan Sheriff Order Number: [id number] Reading MD: Soni Ulloa Measurements Intervals [place] Rate: 113 P: 54 [place]: 160 QRS: 10 QRSD: 101 T: 23 QT: 316 QTc: 383 Interpretive Statements SINUS TACHYCARDIA NONSPECIFIC ST \T\ T-WAVE ABNORMALITY ABNORMAL RHYTHM ECG Electronically Signed On 08-01-2016 17:50:15 EST by Soni Ulloa
[2016-08-02] MEDS: FentaNYL (PF) 1,000 MCG in 0.9 % Sodium Chloride 80 ML IVC SCH ×2 (01:25→20:04)
[2016-08-02] MEDS: Pantoprazole 40 MG in 0.9 % Sodium Chloride Mini Bag 100 ML IVC SCH ×6 (02:00→21:47)
[2016-08-02 04:28] LABS: Basophils % 0.2 %; Eosinophils # 0.3 K/mcL (0.0-0.6); Hematocrit 21.7 % (37.5-50.1); Immature Granulocytes % 0.9 % (0-4); Mean Corpuscular HGB Conc 32.3 g/dL (31.6-35.5); Mean Corpuscular Hemoglobin 28.3 pg (28.0-33.3); Mean Corpuscular Volume 87.9 fL (83.0-100.0); Mean Platelet Volume 9.5 fL (9.4-12.4); Monocytes # 0.9 K/mcL (0.0-1.3); Monocytes % 8.5 %; Neutrophils # 7.2 K/mcL (1.6-8.9); Platelet Count 325 K/mcL (140-400); Red Blood Count 2.47 M/mcL (4.19-5.50); Red Cell Distribution Width 16.1 % (11.5-14.5); Segmented Neutrophils % 68.4 %
[2016-08-02 04:55] LABS: Calcium 7.6 mg/dL (8.6-10.8); Potassium 4.1 mEq/L (3.5-4.5)
[2016-08-02 06:20] LABS: ABG Base Excess -2.3 mEq/L (-2.0 to 3.0); ABG HCO3 22.4 mEQ/L (21-27); ABG Oxygen Saturation 97 % (95-98); ABG PCO2 37 mmHg (35-45); ABG PH 7.39 pH Units (7.32-7.45); ABG PO2 88 mmHg (85-104); ABG TCO2 23.5 mEq/L (20-26)
[2016-08-02 06:21] LABS: Blood Gas FiO2 35 %
[2016-08-02] MEDS ORDERED: Furosemide 20 MG/2 ML VIAL IVP ONE ×2 (07:48→12:41)
[2016-08-02] MEDS: Piperacillin/Tazobactam 3.375 GM in D5% in Water (Mini-Bag+) 100 ML IVPB SCH ×3 (08:00→23:50)
[2016-08-02] MEDS: 0.9 % Sodium Chloride 1,000 ML IVC SCH ×3 (08:18→20:42)
[2016-08-02] MEDS ORDERED: Chloraseptic Spray 177 ML BOTTLE MM PRN (08:56)
--- NOTE | 2016-08-02 10:29 | Pulmonology Progress Note ---
<Regan Moore - Last Filed: 08/02/16 10:26> Date of Encounter: 08/02/16 Time of Encounter: 08:00 Assessment and Plan (1) Aspiration into airway Current Visit: Yes Status: Acute Patient had aspirated blood and gastric contents prior to procedure. Chest x- ray (08/02/2016) demonstrates patchy opacification the left lung which is suspicious for pneumonia. Patient remains intubated and sedated with airway protection. Plan: - Antibiotic coverage includes Zosyn every 8 hours - Patient tolerating CPAP and to be extubated. Qualifiers: Qualified Code(s): T17.908A - Unspecified foreign body in respiratory tract, part unspecified causing other injury, initial encounter (2) Leukocytosis (leucocytosis) Current Visit: Yes Status: Acute improving. Suspect elevation was reactive. Qualifiers: Qualified Code(s): D72.829 - Elevated white blood cell count, unspecified (3) GI bleed Current Visit: Yes Status: Acute Patient presented with a hemoglobin of 6.2 with a history of black tarry stools for last several weeks associated with chest pain and lethargy. He had been taking 3 different NSAIDs regularly for weeks for knee pain. Patient underwent endoscopy that demonstrated salmon-colored mucosa, nonbleeding gastric ulcers with no stigmata or bleeding. One losing duodenal ulcer with adherent clot. Injected. Treated not successful. Treated with bipolar gold cautery and clips were placed. - Hgb fell from 9.3 to 7.0 over night Plan: - recheck hgb this afternoon - Continue Protonix 40 mg IV drip. - Replace with PRBCs as needed. Qualifiers: GI bleed type/associated pathology: melena Qualified Code(s): K92.1 - Melena (4) Acute kidney injury Current Visit: Yes Status: Acute Acute kidney injury secondary to volume loss. No previous creatinines on prior visits. Creatinine was 1.75 now 1.72 after PRBC replacement and procedure. Todays Creatinin improved to 1.54. Plan: -Renally dose antibiotics and avoid nephrotoxic medications - Avoid NSAIDs. - Recheck renal function with a.m. labs. (5) Anemia due to acute blood loss Current Visit: Yes Status: Acute Anemia secondary to acute blood loss from duodenal ulceration. Postprocedure with clippings. 2 units PRBCs transfused. Hgb fell from 9.3 to 7.0 if hgb does not stay stable or improve will require further transfusions. Plan: - recheck CBC this afternoon - Transfuse as necessary. (6) Hypertension Current Visit: Yes Status: Acute Patient is a history of hypertension with home medications including lisinopril 20 mg by mouth twice a day, HCTZ 25 mg by mouth daily, metoprolol 50 mg by mouth a.m. patient present with hypotension secondary to volume loss. Mansi: - Restart Toprolol XL at 25mg daily. Qualifiers: Hypertension type: essential hypertension Qualified Code(s): I10 - Essential (primary) hypertension (7) DVT prophylaxis Current Visit: Yes Status: Acute SCDs. Subjective Principal diagnosis: GI bleed Interval history: Mr. Berrios has been seen and evaluated this morning at bedside. He is awake alert and intubated tolerating CPAP trial. He is following commands appropriately. He signals he would like to have the ET tube out. There were no concerns from Nursing staff from over night. Objective PUL Vital signs: Last Vital Signs Temp 99.4 F 08/02/16 08:12 Pulse 93 08/02/16 09:00 Resp 18 08/02/16 09:00 BP 150/101 08/02/16 09:00 Pulse Ox 99 08/02/16 09:00 Gen. well-developed well-nourished no acute distress and intubated. HEENT: Normocephalic, atraumatic, mucous membranes are dry, pale lips, trachea midline no crepitus on palpation Cardiac: Regular rate and rhythm, positive S1-S2 no murmurs or gallops appreciated Respiratory: Mild rhonchi appreciated left lower lung base all the lung chung are clear to auscultation. Chest symmetric correlate with mechanical ventilation. Abdomen: Soft, non-tender to palpation, positive bowel sounds Extremities: Symmetric bilateral no signs of trauma Ventilator Settings Ventilator Settings: Ventilator Settings, Last 8 Hours Ventilator Mode CPAP Ventilator Mode VC+ Ventilator Mode VC+ Ventilator Mode VC+ Ventilator Mode VC+ Ventilator Mode VC+ Ventilator Mode VC+ Ventilator Tidal Volume 450 Setting Ventilator Tidal Volume 450 Setting Ventilator Tidal Volume 450 Setting Ventilator Tidal Volume 450 Setting Ventilator Tidal Volume 450 Setting Ventilator Tidal Volume 450 Setting Ventilator Respiratory Rate 16 Setting Ventilator Respiratory Rate 16 Setting Ventilator Respiratory Rate 16 Setting Ventilator Respiratory Rate 16 Setting Ventilator Respiratory Rate 16 Setting Ventilator Respiratory Rate 16 Setting Actual Respiratory Rate 14 Actual Respiratory Rate 16 Actual Respiratory Rate 16 Actual Respiratory Rate 16 Actual Respiratory Rate 16 Actual Respiratory Rate 16 Positive End Expiratory 5 Pressure Positive End Expiratory 5 Pressure Positive End Expiratory 5 Pressure Positive End Expiratory 5 Pressure Positive End Expiratory 5 Pressure Positive End Expiratory 5 Pressure Positive End Expiratory 5 Pressure Peak Inspiratory Airway 11 Pressure Peak Inspiratory Airway 27 Pressure Peak Inspiratory Airway 27 Pressure Peak Inspiratory Airway 23 Pressure Peak Inspiratory Airway 24 Pressure Peak Inspiratory Airway 24 Pressure Results - Laboratory Findings CBC and BMP: 08/02/16 03:55 08/02/16 03:55 ABG ABG pH 7.39 pH Units (7.32-7.45) 08/02/16 06:10 ABG pCO2 37 mmHg (35-45) 08/02/16 06:10 ABG pO2 88 mmHg (85-104) 08/02/16 06:10 ABG O2 Saturation 97 % (95-98) 08/02/16 06:10 PT/INR, D-dimer PT 13.1 Seconds (9.4-12.1) H 08/01/16 10:16 Abnormal lab findings: Abnormal lab results RBC 2.47 M/mcL (4.19-5.50) L 08/02/16 03:55 Hgb 7.0 g/dL (12.9-16.9) L D 08/02/16 03:55 Hct 21.7 % (37.5-50.1) L 08/02/16 03:55 RDW 16.1 % (11.5-14.5) H 08/02/16 03:55 PT 13.1 Seconds (9.4-12.1) H 08/01/16 10:16 ABG Base Excess -2.3 mEq/L (-2.0 to 3.0) L 08/02/16 06:10 Chloride 111 mEq/L (98-109) H 08/02/16 03:55 BUN 38 mg/dL (8-26) H 08/02/16 03:55 Creatinine 1.54 mg/dL (0.72-1.25) H 08/02/16 03:55 Est GFR ( Amer) 56 (> 60) L 08/02/16 03:55 Est GFR (Non-Af Amer) 46 (> 60) L 08/02/16 03:55 POC Glucose 93 (58-89) H 08/01/16 17:30 Calcium 7.6 mg/dL (8.6-10.8) L 08/02/16 03:55 Albumin 2.2 g/dL (3.5-5.0) L 08/01/16 10:16 Globulin 3.9 g/dL (2.4-3.5) H 08/01/16 10:16 Albumin/Globulin Ratio 0.6 (1.1-2.2) L 08/01/16 10:16 Urine Bilirubin Large (Negative) H 08/01/16 16:45 - Clinical Findings Intake & Output: Intake & Output 08/01/16 08/02/16 08/02/16 23:59 07:59 15:59 Intake Total 1585 / 1585 505 / 505 1100 / 1100 Output Total 400 / 400 600 / 600 300 / 300 Balance 1185 / 1185 -95 / -95 800 / 800 Weight 111.312 kg Consult Discharge Plan - Plan [facility]errals: [facility]Primary Care Provider[facility] - <Macario Iglesias W - Last Filed: 08/02/16 11:09> Objective PUL Vital signs: Last Vital Signs Temp 99.4 F 08/02/16 08:12 Pulse 89 08/02/16 10:00 Resp 20 08/02/16 10:00 BP 160/82 08/02/16 10:00 Pulse Ox 99 08/02/16 10:00 Ventilator Settings Ventilator Settings: Ventilator Settings, Last 8 Hours Ventilator Mode CPAP Ventilator Mode VC+ Ventilator Mode VC+ Ventilator Mode VC+ Ventilator Mode VC+ Ventilator Mode VC+ Ventilator Tidal Volume 450 Setting Ventilator Tidal Volume 450 Setting Ventilator Tidal Volume 450 Setting Ventilator Tidal Volume 450 Setting Ventilator Tidal Volume 450 Setting Ventilator Respiratory Rate 16 Setting Ventilator Respiratory Rate 16 Setting Ventilator Respiratory Rate 16 Setting Ventilator Respiratory Rate 16 Setting Ventilator Respiratory Rate 16 Setting Actual Respiratory Rate 14 Actual Respiratory Rate 16 Actual Respiratory Rate 16 Actual Respiratory Rate 16 Actual Respiratory Rate 16 Positive End Expiratory 5 Pressure Positive End Expiratory 5 Pressure Positive End Expiratory 5 Pressure Positive End Expiratory 5 Pressure Positive End Expiratory 5 Pressure Positive End Expiratory 5 Pressure Peak Inspiratory Airway 11 Pressure Peak Inspiratory Airway 27 Pressure Peak Inspiratory Airway 27 Pressure Peak Inspiratory Airway 23 Pressure Peak Inspiratory Airway 24 Pressure Results - Laboratory Findings CBC and BMP: 08/02/16 03:55 08/02/16 03:55 ABG ABG pH 7.39 pH Units (7.32-7.45) 08/02/16 06:10 ABG pCO2 37 mmHg (35-45) 08/02/16 06:10 ABG pO2 88 mmHg (85-104) 08/02/16 06:10 ABG O2 Saturation 97 % (95-98) 08/02/16 06:10 PT/INR, D-dimer PT 13.1 Seconds (9.4-12.1) H 08/01/16 10:16 Abnormal lab findings: Abnormal lab results RBC 2.47 M/mcL (4.19-5.50) L 08/02/16 03:55 Hgb 7.0 g/dL (12.9-16.9) L D 08/02/16 03:55 Hct 21.7 % (37.5-50.1) L 08/02/16 03:55 RDW 16.1 % (11.5-14.5) H 08/02/16 03:55 PT 13.1 Seconds (9.4-12.1) H 08/01/16 10:16 ABG Base Excess -2.3 mEq/L (-2.0 to 3.0) L 08/02/16 06:10 Chloride 111 mEq/L (98-109) H 08/02/16 03:55 BUN 38 mg/dL (8-26) H 08/02/16 03:55 Creatinine 1.54 mg/dL (0.72-1.25) H 08/02/16 03:55 Est GFR ( Amer) 56 (> 60) L 08/02/16 03:55 Est GFR (Non-Af Amer) 46 (> 60) L 08/02/16 03:55 POC Glucose 93 (58-89) H 08/01/16 17:30 Calcium 7.6 mg/dL (8.6-10.8) L 08/02/16 03:55 Albumin 2.2 g/dL (3.5-5.0) L 08/01/16 10:16 Globulin 3.9 g/dL (2.4-3.5) H 08/01/16 10:16 Albumin/Globulin Ratio 0.6 (1.1-2.2) L 08/01/16 10:16 Urine Bilirubin Large (Negative) H 08/01/16 16:45 - Clinical Findings Intake & Output: Intake & Output 08/01/16 08/02/16 08/02/16 23:59 07:59 15:59 Intake Total 1585 / 1585 505 / 505 1100 / 1100 Output Total 400 / 400 600 / 600 2100 / 2100 Balance 1185 / 1185 -95 / -95 -1000 / -1000 Weight 111.312 kg - Attending Attestation I examined this patient and my medical decision-making was reviewed with the DIRECTOR EPIDEMIOLOGY/PA/Advanced Practice Nurse/Resident Physician. I agree with the documented findings, disposition and treatment plan as described except to the extent set forth below. Patient seen and examined at bedside Labs, radiology, chart personally reviewed. All lines examined without evidence of infection. Neuropsych: Awake following commands uses EtOH at home we will continue to monitor for withdrawal Pulm: Acute hypoxic respiratory failure during EGD and had been intubated now extubated doing well on nasal cannula O2 wean as tolerated continue diuresis for increased pulmonary congestion Cards: ECG without STEMI troponin within normal limits continue to monitor on telemetry underlying hypertension now currently normotensive FEN-GI: Acute upper GI hemorrhage secondary to likely NSAID induced PUD high- grade lesion continue proton pump inhibitor infusion nothing by mouth except for meds. GI following. Renal: SERGE likely secondary to NSAID which is overall improving continues to have appropriate urine output ID: Concern for aspiration empirically started PIP/TAZO continued for another 24 hours and then stop if no evidence of infection Heme/Onc: Mechanical SCDs for DVT prophylaxis. Slight drop in hemoglobin overnight but no signs of active bleeding continue to trend hemoglobin transfusion goal is less than 7 Endo: Glucose monitored Integ/MSK: Skin care per ICU protocol CODE: Full code
[2016-08-02] MEDS ORDERED: Metoprolol XL (24 HR) Succ 25 MG TAB.ER.24H PO SCH (11:00)
[2016-08-02 13:37] LABS: Hematocrit 24.4 % (37.5-50.1); Hemoglobin 7.8 g/dL (12.9-16.9); Mean Corpuscular Volume 87.5 fL (83.0-100.0); Mean Platelet Volume 9.3 fL (9.4-12.4); Platelet Count 330 K/mcL (140-400); Red Blood Count 2.79 M/mcL (4.19-5.50); Red Cell Distribution Width 15.9 % (11.5-14.5)
--- NOTE | 2016-08-02 14:24 | Event Note ---
Date of Encounter: 08/02/16 Time of Encounter: 14:[address] Leos with gastroenterology regarding Mr. Berrios. He recommended continuing Protonix drip until Thursday, patient is able to start clear liquid diet, and Transfuse one unit of blood after discussing current hemaglobin level. This plan was discussed with my attending Dr. Iglesias and communicating to nursing staff.
[2016-08-02 17:24] LABS: BUN/Creatinine Ratio 24 (6-26); Blood Urea Nitrogen 34 mg/dL (8-26); Carbon Dioxide 23 mEq/L (19-29); Chloride 105 mEq/L (98-109); Glucose 103 mg/dL (70-99); Osmolality,Calculated 296 (280-300); Potassium 3.7 mEq/L (3.5-4.5); Sodium 139 mEq/L (136-145); eGFR For African Americans > 60 (> 60); eGFR For Non-African Americans 51 (> 60)
[2016-08-03] MEDS: Pantoprazole 40 MG in 0.9 % Sodium Chloride Mini Bag 100 ML IVC SCH ×5 (04:02→23:49)
[2016-08-03 04:06] LABS: Basophils # 0.1 K/mcL (0.0-0.2); Basophils % 0.5 %; Eosinophils # 0.4 K/mcL (0.0-0.6); Eosinophils % 3.9 %; Hematocrit 25.7 % (37.5-50.1); Hemoglobin 8.4 g/dL (12.9-16.9); Immature Granulocytes % 1.5 % (0-4); Immature Platelets 1.8 % (1.1-6.1); Lymphocytes # 2.6 K/mcL (0.6-4.6); Lymphocytes % 26.3 %; Mean Corpuscular HGB Conc 32.7 g/dL (31.6-35.5); Mean Corpuscular Hemoglobin 28.6 pg (28.0-33.3); Mean Corpuscular Volume 87.4 fL (83.0-100.0); Mean Platelet Volume 9.3 fL (9.4-12.4); Monocytes # 0.7 K/mcL (0.0-1.3); Monocytes % 7.3 %; Neutrophils # 5.9 K/mcL (1.6-8.9); Platelet Count 359 K/mcL (140-400); Red Blood Count 2.94 M/mcL (4.19-5.50); Red Cell Distribution Width 15.5 % (11.5-14.5); Segmented Neutrophils % 60.5 %
[2016-08-03 04:33] LABS: Alanine Aminotransferase 13 Units/L (0-55); Albumin 2.3 g/dL (3.5-5.0); Albumin/Globulin Ratio 0.6 (1.1-2.2); Alkaline Phosphatase 40 Units/L (38-126); Aspartate Amino Transferase 21 Units/L (5-34); BUN/Creatinine Ratio 21 (6-26); Bilirubin,Total 0.8 mg/dL (0.2-1.2); Blood Urea Nitrogen 28 mg/dL (8-26); Calcium 7.8 mg/dL (8.6-10.8); Carbon Dioxide 22 mEq/L (19-29); Chloride 104 mEq/L (98-109); Globulin 4.1 g/dL (2.4-3.5); Glucose 82 mg/dL (70-99); Osmolality,Calculated 293 (280-300); Potassium 3.4 mEq/L (3.5-4.5); Sodium 139 mEq/L (136-145); Total Protein 6.4 g/dL (6.0-8.3); eGFR For African Americans > 60 (> 60); eGFR For Non-African Americans 54 (> 60)
[2016-08-03] MEDS ORDERED: Chloraseptic Spray 177 ML BOTTLE MM PRN (09:03)
[2016-08-03] MEDS ORDERED: Naloxone 0.4 MG/ML INJ IVP PRN (09:03)
[2016-08-03] MEDS ORDERED: *HR* HYDROcodone/Acet 5/325 mg TABLET PO PRN (09:03)
--- NOTE | 2016-08-03 10:25 | Pulmonology Progress Note ---
<Regan Moore - Last Filed: 08/03/16 10:23> Date of Encounter: 08/03/16 Time of Encounter: 10:23 Assessment and Plan (1) Aspiration into airway Current Visit: Yes Status: Acute Patient had aspirated blood and gastric contents prior to procedure. Chest x- ray (08/02/2016) demonstrates patchy opacification the left lung which is suspicious for pneumonia. Patient has been without a fever, asymptomatic, improved WBC count. Plan: - Discontinue Zosyn. - Monitor respiratory status during inpatient stay. Qualifiers: Qualified Code(s): T17.908A - Unspecified foreign body in respiratory tract, part unspecified causing other injury, initial encounter (2) Leukocytosis (leucocytosis) Current Visit: Yes Status: Acute Resolved. Suspect elevation was reactive. Qualifiers: Qualified Code(s): D72.829 - Elevated white blood cell count, unspecified (3) GI bleed Current Visit: Yes Status: Acute Patient presented with a hemoglobin of 6.2 with a history of black tarry stools for last several weeks associated with chest pain and lethargy. He had been taking 3 different NSAIDs regularly for weeks for knee pain. Patient underwent endoscopy that demonstrated salmon-colored mucosa, nonbleeding gastric ulcers with no stigmata or bleeding. One losing duodenal ulcer with adherent clot. Injected. Treated not successful. Treated with bipolar gold cautery and clips were placed. Hemoglobin is stable at 8.4 after a total of 5 units PRBC transfusion. Tolerating transitional diet. Plan: - Recheck hemoglobin level in a.m. - Continue Protonix 40 mg IV drip until Thursday per GI request. - Replace with PRBCs as needed. Qualifiers: GI bleed type/associated pathology: melena Qualified Code(s): K92.1 - Melena (4) Acute kidney injury Current Visit: Yes Status: Acute Acute kidney injury secondary to volume loss and NSAID use. No previous creatinines on prior visits. Creatinine continues to improve daily. Plan: -Renally dose antibiotics and avoid nephrotoxic medications - Avoid NSAIDs. - Recheck renal function with a.m. labs. (5) Anemia due to acute blood loss Current Visit: Yes Status: Acute Anemia secondary to acute blood loss from duodenal ulceration. Postprocedure with clippings. 2 units PRBCs transfused. Hgb fell from 9.3 to 7.0 if hgb does not stay stable or improve will require further transfusions. Plan: - recheck CBC this afternoon - Transfuse as necessary. (6) Hypertension Current Visit: Yes Status: Acute Patient is a history of hypertension with home medications including lisinopril 20 mg by mouth twice a day, HCTZ 25 mg by mouth daily, metoprolol 50 mg by mouth a.m. patient presented with hypotension secondary to volume loss. He is currently in stable condition post operation and blood pressures are stable. Mansi: - Continue Toprolol XL at 25mg daily. Qualifiers: Hypertension type: essential hypertension Qualified Code(s): I10 - Essential (primary) hypertension (7) DVT prophylaxis Current Visit: Yes Status: Acute SCDs. Subjective Principal diagnosis: GI bleed Interval history: Mr. Berrios has been seen and evaluated this morning at bedside. He is awake alert, in no acute distress and interacting appropriately. His only complaint is mild right upper quadrant tenderness which he said is actually improved since prior to admission. He requests evaluation for H. pylori if it has not already been completed. I discussed the importance of follow-up with his primary care physician for discussion about symptom control for his bilateral knee pain given his recommended he avoid Naprosyn and other NSAIDs at this time with his GI bleed and acute kidney injury. Mr. berrios demonstrates understanding and agreement to this plan. He has no other concerns at this time. Objective PUL Vital signs: Last Vital Signs Temp 98.6 F 08/03/16 08:01 Pulse 85 08/03/16 08:42 Resp 18 08/03/16 08:00 BP 133/76 08/03/16 08:00 Pulse Ox 96 08/03/16 08:00 Gen. well-developed well-nourished no acute distress, interacting appropriately. HEENT: Normocephalic, atraumatic, mucous membranes are moist, trachea midline no crepitus on palpation Cardiac: Regular rate and rhythm, positive S1-S2 no murmurs or gallops appreciated Respiratory: Lungs clear to auscultation bilaterally Chest symmetric correlating with respiratory efforts. Abdomen: Soft, non-tender to palpation, positive bowel sounds Extremities: Symmetric bilateral no signs of trauma, patient moving extremities spontaneously. Results - Laboratory Findings CBC and BMP: 08/03/16 03:46 08/03/16 03:46 ABG ABG pH 7.39 pH Units (7.32-7.45) 08/02/16 06:10 ABG pCO2 37 mmHg (35-45) 08/02/16 06:10 ABG pO2 88 mmHg (85-104) 08/02/16 06:10 ABG O2 Saturation 97 % (95-98) 08/02/16 06:10 PT/INR, D-dimer PT 13.1 Seconds (9.4-12.1) H 08/01/16 10:16 Abnormal lab findings: Abnormal lab results RBC 2.94 M/mcL (4.19-5.50) L 08/03/16 03:46 Hgb 8.4 g/dL (12.9-16.9) L 08/03/16 03:46 Hct 25.7 % (37.5-50.1) L 08/03/16 03:46 RDW 15.5 % (11.5-14.5) H 08/03/16 03:46 MPV 9.3 fL (9.4-12.4) L 08/03/16 03:46 PT 13.1 Seconds (9.4-12.1) H 08/01/16 10:16 ABG Base Excess -2.3 mEq/L (-2.0 to 3.0) L 08/02/16 06:10 Potassium 3.4 mEq/L (3.5-4.5) L 08/03/16 03:46 BUN 28 mg/dL (8-26) H 08/03/16 03:46 Creatinine 1.35 mg/dL (0.72-1.25) H 08/03/16 03:46 Est GFR (Non-Af Amer) 54 (> 60) L 08/03/16 03:46 POC Glucose 96 (58-89) H 08/02/16 11:55 Calcium 7.8 mg/dL (8.6-10.8) L 08/03/16 03:46 Albumin 2.3 g/dL (3.5-5.0) L 08/03/16 03:46 Globulin 4.1 g/dL (2.4-3.5) H 08/03/16 03:46 Albumin/Globulin Ratio 0.6 (1.1-2.2) L 08/03/16 03:46 Urine Bilirubin Large (Negative) H 08/01/16 16:45 - Microbiology Findings Microbiology Findings: Microbiology, Last 48 Hours 08/01/16 11:55 Blood Culture - Preliminary Peripheral Venipuncture No growth. 08/01/16 12:03 Blood Culture - Preliminary Peripheral Venipuncture No growth. - Clinical Findings Intake & Output: Intake & Output 08/02/16 08/03/16 08/03/16 22:59 07:59 15:59 Intake Total 360 / 360 Output Total 300 / 300 Balance 60 / 60 Weight Consult Discharge Plan - Plan [facility]errals: [facility] [Primary Care Provider] - <Macario Iglesias - Last Filed: 08/03/16 11:11> Objective PUL Vital signs: Last Vital Signs Temp 98.6 F 08/03/16 08:01 Pulse 85 08/03/16 08:42 Resp 18 08/03/16 08:00 BP 133/76 08/03/16 08:00 Pulse Ox 96 08/03/16 08:00 Results - Laboratory Findings CBC and BMP: 08/03/16 03:46 08/03/16 03:46 ABG ABG pH 7.39 pH Units (7.32-7.45) 08/02/16 06:10 ABG pCO2 37 mmHg (35-45) 08/02/16 06:10 ABG pO2 88 mmHg (85-104) 08/02/16 06:10 ABG O2 Saturation 97 % (95-98) 08/02/16 06:10 PT/INR, D-dimer PT 13.1 Seconds (9.4-12.1) H 08/01/16 10:16 Abnormal lab findings: Abnormal lab results RBC 2.94 M/mcL (4.19-5.50) L 08/03/16 03:46 Hgb 8.4 g/dL (12.9-16.9) L 08/03/16 03:46 Hct 25.7 % (37.5-50.1) L 08/03/16 03:46 RDW 15.5 % (11.5-14.5) H 08/03/16 03:46 MPV 9.3 fL (9.4-12.4) L 08/03/16 03:46 PT 13.1 Seconds (9.4-12.1) H 08/01/16 10:16 ABG Base Excess -2.3 mEq/L (-2.0 to 3.0) L 08/02/16 06:10 Potassium 3.4 mEq/L (3.5-4.5) L 08/03/16 03:46 BUN 28 mg/dL (8-26) H 08/03/16 03:46 Creatinine 1.35 mg/dL (0.72-1.25) H 08/03/16 03:46 Est GFR (Non-Af Amer) 54 (> 60) L 08/03/16 03:46 POC Glucose 96 (58-89) H 08/02/16 11:55 Calcium 7.8 mg/dL (8.6-10.8) L 08/03/16 03:46 Albumin 2.3 g/dL (3.5-5.0) L 08/03/16 03:46 Globulin 4.1 g/dL (2.4-3.5) H 08/03/16 03:46 Albumin/Globulin Ratio 0.6 (1.1-2.2) L 08/03/16 03:46 Urine Bilirubin Large (Negative) H 08/01/16 16:45 - Microbiology Findings Microbiology Findings: Microbiology, Last 48 Hours 08/01/16 11:55 Blood Culture - Preliminary Peripheral Venipuncture No growth. 08/01/16 12:03 Blood Culture - Preliminary Peripheral Venipuncture No growth. - Clinical Findings Intake & Output: Intake & Output 08/02/16 08/03/16 08/03/16 22:59 07:59 15:59 Intake Total 360 / 360 Output Total 300 / 300 Balance 60 / 60 Weight - Attending Attestation I examined this patient and my medical decision-making was reviewed with the [employer]/PA/Advanced Practice Nurse/Resident Physician. I agree with the documented findings, disposition and treatment plan as described except to the extent set forth below. Patient seen and examined at bedside Labs, radiology, chart personally reviewed. All lines examined without evidence of infection. Neuropsych: No acute issues Pulm: Good O2 sat% on room air Cards: Stable on Tele FEN-GI: Acute upper GI hemorrhage secondary to likely NSAID induced PUD high- grade lesion. continue proton pump inhibitor infusion. Advance diet to liquids GI following. Renal: SERGE likely secondary to NSAID which is overall improving continues to have appropriate urine output ID: Stob ABx Heme/Onc: Mechanical SCDs for DVT prophylaxis. Transfused 1uPRBcs yesterday. H/ H stable today Endo: Glucose monitored Integ/MSK: Skin care per ICU protocol CODE: Full code Stable for transfer to [facility]/Tele
[2016-08-03] MEDS ORDERED: Potassium Chloride Elixir 20 MEQ/15 ML UDC PO ONE (11:32)
[2016-08-03] MEDS ORDERED: Piperacillin/Tazobactam 3.375 GM in D5% in Water (Mini-Bag+) 100 ML IVPB SCH (16:00)
[2016-08-03] MEDS: 0.9 % Sodium Chloride 1,000 ML IVC SCH ×2 (19:39→19:40)
[2016-08-04] MEDS: 0.9 % Sodium Chloride 1,000 ML IVC SCH (04:26)
[2016-08-04 04:47] VITALS: BP 144/85
[2016-08-04 04:56] LABS: Hematocrit 26.8 % (37.5-50.1); Hemoglobin 8.8 g/dL (12.9-16.9); Mean Corpuscular HGB Conc 32.8 g/dL (31.6-35.5); Mean Corpuscular Hemoglobin 28.8 pg (28.0-33.3); Mean Corpuscular Volume 87.6 fL (83.0-100.0); Mean Platelet Volume 9.3 fL (9.4-12.4); Platelet Count 336 K/mcL (140-400); Red Blood Count 3.06 M/mcL (4.19-5.50); Red Cell Distribution Width 15.3 % (11.5-14.5)
[2016-08-04] MEDS: Pantoprazole 40 MG in 0.9 % Sodium Chloride Mini Bag 100 ML IVC SCH (04:57)
[2016-08-04 05:11] LABS: BUN/Creatinine Ratio 15 (6-26); Blood Urea Nitrogen 18 mg/dL (8-26); Calcium 8.5 mg/dL (8.6-10.8); Carbon Dioxide 26 mEq/L (19-29); Chloride 107 mEq/L (98-109); Glucose 103 mg/dL (70-99); Osmolality,Calculated 290 (280-300); Potassium 3.7 mEq/L (3.5-4.5); Sodium 139 mEq/L (136-145); eGFR For African Americans > 60 (> 60); eGFR For Non-African Americans > 60 (> 60)
--- NOTE | 2016-08-04 08:03 | Pulmonology Progress Note ---
Date of Encounter: 08/04/16 Time of Encounter: 07:57 Assessment and Plan (1) Aspiration into airway Current Visit: Yes Status: Acute 61 y/o M admitted for GI bleed 2nd to multiple NSAID use. On admission his hgb was 6.2. and he had a hx of melanotic stools for the past several weeks. He has received 5 units [facility]. Underwent endoscopy with findings of non bleeding gastric ulcer and oozing duodenal ulcer which was treated successfully with cautery and clips. Prior to procedure patient aspirated blood and gastric contents. CXR on 2016 shows patchy ossifications of the left lung/possible pneumonia and intubated during EGD and started on zosyn. On 08/02 patient was successfully extubated and his respiratory status has remained stable since. Zosyn was discontinued as patient has no clinical indicaitons of pneumonia: afebrile, normal wbc, SPO2>90 on room air. Patient is ready to be d/c. Will take to GI about d/c medications and outpatient followup. Qualifiers: Encounter type: initial encounter Qualified Code(s): T17.908A - Unspecified foreign body in respiratory tract, part unspecified causing other injury, initial encounter (2) Acute kidney injury Current Visit: Yes Status: Acute Patient at admission has Scr of 1.75. No records of baseline Scr. NO hx of CKD. This is most likely 2nd to acute blood loss and NSAID use. -currently resolved. -w/o NSAIDS (3) Anemia due to acute blood loss Current Visit: Yes Status: Acute (4) DVT prophylaxis Current Visit: Yes Status: Acute (5) GI bleed Current Visit: Yes Status: Acute Qualifiers: GI bleed type/associated pathology: melena Qualified Code(s): K92.1 - Melena (6) Hypertension Current Visit: Yes Status: Acute Qualifiers: Hypertension type: essential hypertension Qualified Code(s): I10 - Essential (primary) hypertension Subjective Principal diagnosis: GI bleed Interval history: Patient had no overnight complaints. His epigastric pain has improved since admission. Patient denies CP, sob, palpitations, cough, nausea, dysuria. Objective PUL Vital signs: Last Vital Signs Temp 98.4 F 08/04/16 04:11 Pulse 86 08/04/16 07:31 Resp 16 08/04/16 04:00 BP 144/85 08/04/16 04:00 Pulse Ox 100 08/04/16 04:00 General appearance: no acute distress, alert Eyes: nonicteric ENT: oropharynx moist Mallampati (class): 3 Neck: no lymphadenopathy Effort: normal Auscultation: bilateral: clear Cardiovascular: regular rate and rhythm Gastrointestinal: normoactive bowel sounds, soft, tender Integumentary: normal Extremities: no cyanosis, no edema, pulses normal normal mental status mood appropriate Results - Laboratory Findings CBC and BMP: 08/04/16 04:40 08/04/16 04:40 ABG ABG pH 7.39 pH Units (7.32-7.45) 08/02/16 06:10 ABG pCO2 37 mmHg (35-45) 08/02/16 06:10 ABG pO2 88 mmHg (85-104) 08/02/16 06:10 ABG O2 Saturation 97 % (95-98) 08/02/16 06:10 PT/INR, D-dimer PT 13.1 Seconds (9.4-12.1) H 08/01/16 10:16 Abnormal lab findings: Abnormal lab results RBC 3.06 M/mcL (4.19-5.50) L 08/04/16 04:40 Hgb 8.8 g/dL (12.9-16.9) L 08/04/16 04:40 Hct 26.8 % (37.5-50.1) L 08/04/16 04:40 RDW 15.3 % (11.5-14.5) H 08/04/16 04:40 MPV 9.3 fL (9.4-12.4) L 08/04/16 04:40 PT 13.1 Seconds (9.4-12.1) H 08/01/16 10:16 ABG Base Excess -2.3 mEq/L (-2.0 to 3.0) L 08/02/16 06:10 Glucose 103 mg/dL (70-99) H 08/04/16 04:40 POC Glucose 96 (58-89) H 08/02/16 11:55 Calcium 8.5 mg/dL (8.6-10.8) L 08/04/16 04:40 Albumin 2.3 g/dL (3.5-5.0) L 08/03/16 03:46 Globulin 4.1 g/dL (2.4-3.5) H 08/03/16 03:46 Albumin/Globulin Ratio 0.6 (1.1-2.2) L 08/03/16 03:46 Urine Bilirubin Large (Negative) H 08/01/16 16:45 - Microbiology Findings Microbiology Findings: Microbiology, Last 48 Hours 08/01/16 11:55 Blood Culture - Preliminary Peripheral Venipuncture No growth. 08/01/16 12:03 Blood Culture - Preliminary Peripheral Venipuncture No growth. - Clinical Findings Intake & Output: Intake & Output 08/03/16 08/03/16 08/04/16 15:59 23:59 07:59 Intake Total 460 / 460 300 / 300 100 / 100 Output Total 650 / 650 600 / 600 650 / 650 Balance -190 / -190 -300 / -300 -550 / -550 Weight 109.543 kg Consult Discharge Plan - Plan Referrals: [facility] [Primary Care Provider] -
[2016-08-04] MEDS ORDERED: Metoprolol XL (24 HR) Succ 25 MG TAB.ER.24H PO SCH (09:00)
--- NOTE | 2016-08-04 12:50 | Discharge Summary ---
Date of Encounter: 08/04/16 Time of Encounter: 12:47 - Discharge Diagnosis (1) Anemia due to acute blood loss Priority: Primary Status: Acute (2) Aspiration into airway Priority: Secondary Status: Acute Qualifiers: Encounter type: initial encounter Qualified Code(s): T17.908A - Unspecified foreign body in respiratory tract, part unspecified causing other injury, initial encounter (3) Acute kidney injury Priority: Secondary Status: Acute (4) DVT prophylaxis Priority: Secondary Status: Acute (5) GI bleed Priority: Secondary Status: Acute Qualifiers: GI bleed type/associated pathology: melena Qualified Code(s): K92.1 - Melena (6) Hypertension Priority: Secondary Status: Acute Qualifiers: Hypertension type: essential hypertension Qualified Code(s): I10 - Essential (primary) hypertension - Discharge Medications Prescriptions: Pantoprazole Sodium [Protonix] 40 mg PO BID #60 tablet. Sucralfate [Carafate] 1 gm PO BID #60 tablet Home Medications: Lidocaine 4% CRM (LMX) [Lmx 4] 1 appl TP BID PRN 07/31/16 [History] Lisinopril [Zestril] 20 mg PO BID 07/31/16 [History] Pantoprazole Sodium [Protonix] 40 mg PO BID #60 tablet. 08/04/16 [Rx] Sucralfate [Carafate] 1 gm PO BID #60 tablet 08/04/16 [Rx] Allergies/Adverse Reactions: Allergies simvastatin Adverse Reaction (Verified 07/31/16 17:26) Unknown per [place] Labs on day of discharge: Labs from last 24 hours 08/04/16 08/04/16 04:40 04:40 WBC 9.8 RBC 3.06 L Hgb 8.8 L Hct 26.8 L MCV 87.6 MCH 28.8 MCHC 32.8 RDW 15.3 H Plt Count 336 MPV 9.3 L Sodium 139 Potassium 3.7 Chloride 107 Carbon Dioxide 26 BUN 18 D Creatinine 1.20 Est GFR ( Amer) > 60 Est GFR (Non-Af Amer) > 60 BUN/Creatinine Ratio 15 Glucose 103 H Calculated Osmolality 290 Calcium 8.5 L Preliminary micro results at discharge 08/01/16 11:55 Blood Culture - Preliminary Peripheral Venipuncture No growth. 08/01/16 12:03 Blood Culture - Preliminary Peripheral Venipuncture No growth. - Impressions ITS Impressions Chest X-Ray 08/01/16 09:44 IMPRESSION: 1. Endotracheal tube tip approximately 3 cm above the ted. 2. Patchy opacities in the left lung, which may represent pneumonia in the appropriate clinical setting. 3. Widening of the mediastinum superiorly, which is nonspecific and could be related to shallow breath and portable technique. Further evaluation with CT may be warranted. D/ / Cielo Godoy MD / Cielo Godoy MD Interpreting Provider: Cielo Godoy MD Chest X-Ray 08/02/16 04:00 IMPRESSION: 1. Improved aeration of the left lung since the previous study on 08/01/2016. However, there are still bilateral lung infiltrates which could be related to pulmonary edema versus pneumonia. 2. Low lung volumes. 3. Endotracheal tube is unchanged. D/ / 08/02/2016 07:44:45 Dean Alanis MD / thien Interpreting Provider: Dean Alanis MD Date of admission: 07/31/16 20:47 Primary care physician: [facility] Consults: 07/31/16 20:51 Consult to Gastroenterology [CONS] Routine Consulting Provider: [facility] [place] Reason for Consult: 61M with GI bleed, black stool and Hgb 6.2 Call Completed: No 08/01/16 15:32 Consult to Critical Care [CONS] Routine Consulting Provider: [facility] Reason for Consult: intubated for EGD, concern for aspiration Call Completed: Yes Discharging clinician: Elan Garzon Anticipated date of discharge: 08/04/16 - Patient Status Disposition: Home, Self-Care Condition: Good Functional capacity at discharge: independent ambulation Overall status at discharge: patient is progressing back to baseline - Discharge Instructions Follow Up With: [facility] [Primary Care Provider] - Additional Instructions: Furthermore, if patient has episode of bloody vomiting, bloody sputum, black tarry stools, bright red blood per rectum, syncope, weakness, dizziness, he should return to ER for immediate evaluation. - Diet and Activity Activity: increase activity as tolerated Diet: low fat, low cholesterol, low salt diet - Hospital Course Hospital course: 61 y/o M admitted for GI bleed 2nd to multiple NSAID use. On admission his hgb was 6.2. and he had a hx of melanotic stools for the past several weeks. He has received 5 units [facility]. Underwent endoscopy with findings of non bleeding gastric ulcer and oozing duodenal ulcer which was treated successfully with cautery and clips. Prior to procedure patient aspirated blood and gastric contents. CXR on 2016 shows patchy ossifications of the left lung/possible pneumonia and intubated during EGD and started on zosyn. On 08/02 patient was successfully extubated and his respiratory status has remained stable since. Zosyn was discontinued as patient has no clinical indications of pneumonia: afebrile, normal wbc, SPO2>90 on room air. Patient will be d/c on pantoprazone 40mg BID and carafate 1mg BID and follow up with GI in two weeks. He should followup with PCP within 7 days. Also, patient' s aspirin, voltaren, and endolac are d/c due to GI bleed. He refused to take metoprolol. He will continue on home dose lisinopril. PCP can reevaluate patient 's HTN. Furthermore, patient has order for repeat CBC in two days. Furthermore, if patient has episode of bloody vomiting, bloody sputum, black tarry stools, bright red blood per rectum, syncope, weakness, dizziness, he should return to ER for immediate evaluation. - Time Spent with Patient Total time spent providing and/or coordinating discharge services: Physical Examination Vital Signs: Vital Signs, Last 4 Hours Temp Pulse 08/04/16 11:17 86 08/04/16 09:22 98.1 F General appearance: no acute distress Eyes: nonicteric ENT: oropharynx moist Neck: supple Effort: normal Inspection: normal Auscultation: bilateral: clear Cardiovascular: regular rate and rhythm (d) Gastrointestinal: normoactive bowel sounds, soft, non-tender, non-distended Integumentary: normal Extremities: no cyanosis, no edema, no clubbing Musculoskeletal: no deformities Gait: normal gait normal mental status, non-focal exam, pupils equal and round, CN II-XII normal mood appropriate
== END 2016-08-04 14:52 | disposition home or self-care (01) | DRG 377 ==
LOC: EMEROO 15:07 → 2ANU 15:07 → ICNU 08-01 09:13
PROVIDERS: ADMIT Internal Medicine; ATTEND Internal Medicine
PROC: ENDOEBX (2016-08-01 13:15)